=== PATIENT | female | born 1955 | race Caucasian/White ===

== ENCOUNTER 2018-04-09 07:28 | Day surgery (SDC) | payer MEDICARE, OTHER, SELFPAY ==
[2018-04-09 07:53] VITALS: BP 118/73; PULSE 64; RESP 16; TEMP 36; O2SAT 100; BMI 24.8
[2018-04-09 09:11] VITALS: BP 118/73; BP 126/81; PULSE 75; RESP 18; TEMP 36.1; O2SAT 100
--- NOTE | 2018-04-09 09:13 | OP.ENDO_ITS ---
Patient Name: Nilam Alvarado Procedure Date: 04/09/2018 8:34 AM Date of : 1955 Age: 62 Procedure: Colonoscopy Indications: Screening in patient at increased risk: Colorectal cancer in brother before age 60 Providers: Rodolfo Ulrich MD Referring MD: Rodolfo Ulrich MD Medicines: Monitored Anesthesia Care Patient Profile: Last Colonoscopy: 2010. Complications: No immediate complications. Procedure: Pre-Anesthesia Assessment: - Prior to the procedure, a History and Physical was performed, and patient medications and allergies were reviewed. The patient's tolerance of previous anesthesia was also reviewed. The risks and benefits of the procedure and the sedation options and risks were discussed with the patient. All questions were answered, and informed consent was obtained. Prior Anticoagulants: The patient has taken no previous anticoagulant or antiplatelet agents. After reviewing the risks and benefits, the patient was deemed in satisfactory condition to undergo the procedure. After I obtained informed consent, the scope was passed under direct vision. Throughout the procedure, the patient's blood pressure, pulse, and oxygen saturations were monitored continuously. The pediatric colonoscope was introduced through the anus and advanced to the cecum, identified by appendiceal orifice and ileocecal valve. The colonoscopy was somewhat difficult due to a tortuous colon. Successful completion of the procedure was aided by applying abdominal pressure. The patient tolerated the procedure well. The quality of the bowel preparation was adequate. Scope In: 8:46:59 AM Scope Withdrawal Time 0 hours 6 minutes 51 seconds Scope Out: 9:05:53 AM Total Procedure Duration Time 0 hours 18 minutes 54 seconds Findings: The entire examined colon appeared normal on direct and retroflexion views. Impression: - The entire examined colon is normal on direct and retroflexion views. - No specimens collected. Recommendation: - Discharge patient to home. - Resume previous diet. - Continue present medications. - Repeat colonoscopy in 5 years for surveillance. Procedure Code(s): --- Professional --- G0105, Colorectal cancer screening; colonoscopy on individual at high risk Diagnosis Code(s): --- Professional --- Z80.0, Family history of malignant neoplasm of digestive organs CPT copyright 2017 [employer]. All rights reserved. The codes documented in this report are preliminary and upon death surveys coder review may be revised to meet current compliance requirements. Rodolfo Ulrich MD 04/09/2018 9:12:39 AM This report has been signed electronically. Number of Addenda: 0 Note Initiated On: 04/09/2018 8:34 AM
[2018-04-09 09:15] VITALS: BP 118/73; BP 124/82; PULSE 64; RESP 18; O2SAT 99
[2018-04-09 09:20] VITALS: BP 117/64; BP 118/73; PULSE 63; RESP 16; O2SAT 100
[2018-04-09 09:26] VITALS: BP 100/67; BP 118/73; PULSE 60; RESP 16; TEMP 35.9; O2SAT 100
[2018-04-09 09:50] VITALS: BP 118/73
== END 2018-04-09 09:50 | disposition home or self-care (01) ==
LOC: EN 07:31 → AC 07:32
PROVIDERS: Family Provider Student in an Organized Health Care Education/Training Program; PCP Student in an Organized Health Care Education/Training Program; Visit Provider Surgery
PROC: 0DJD8ZZ Inspection of Lower Intestinal Tract, Via Natural or Artificial Opening Endoscopic (ICD-10-PCS; CPT 45378; principal; 2018-04-09 08:25)
DX: Z12.11 Encounter for screening for malignant neoplasm of colon (principal); Z80.0 Family history of malignant neoplasm of digestive organs; K59.00 Constipation, unspecified; J45.909 Unspecified asthma, uncomplicated; F32.9 Major depressive disorder, single episode, unspecified; Z78.0 Asymptomatic menopausal state; Z85.828 Personal history of other malignant neoplasm of skin; Z79.899 Other long term (current) drug therapy; Z87.891 Personal history of nicotine dependence
CPT/HCPCS: 45378; J7120